=== PATIENT | male | born 1970 | race Caucasian/White ===

== ENCOUNTER 2017-03-30 16:10 | Emergency (ER) | payer OTHER ==
[2017-03-30 16:53] VITALS: RESP 20; TEMP 98.4
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
--- NOTE | 2017-03-30 23:31 | CARD ---
APPROVED REPORT EKG Measurement Heart [id number] <Conclusion> Normal sinus rhythm RSR' or QR pattern in V1 suggests right ventricular conduction delay Borderline ECG
[2017-03-30 23:52] VITALS: BP 132/76; PULSE 70; O2SAT 99
--- NOTE | 2017-03-31 10:26 | RAD ---
HISTORY: pain COMPARISON: No prior. TECHNIQUE: Chest PA and lateral FINDINGS: LUNGS: No active pulmonary disease. PLEURA: No significant pleural effusion identified. No pneumothorax apparent. CARDIOVASCULAR: Normal. OSSEOUS STRUCTURES: No significant abnormalities. VISUALIZED UPPER ABDOMEN: Normal. OTHER FINDINGS: None. IMPRESSION: No active disease.
== END 2017-03-30 18:55 | disposition home or self-care (01) ==
LOC: ED 16:10
DX: S20.219A Contusion of unspecified front wall of thorax, initial encounter (principal); V49.9XXA Car occupant (driver) (passenger) injured in unspecified traffic accident, initial encounter